=== PATIENT | female | born 2000 | race Asian ===

== ENCOUNTER 2023-04-25 11:03 | Emergency (ER) | payer BC ==
[~2023-04-25] VITALS: Ht 162.6 cm; Wt 46.3 kg
[2023-04-25 11:12] VITALS: BP 122/66; PULSE 87; RESP 16; TEMP 98.3; O2SAT 98
--- NOTE | 2023-04-25 11:19 | NUR ---
AMB. TO BED 4 WITH NO DISTRESS. NO ACUTE BLEEDING. NURSE MADE AWARE
[2023-04-25] MEDS ORDERED: LIDOCAINE MPF 1% 10 MG/ML VIAL INJ ONE (11:25)
--- NOTE | 2023-04-25 11:37 | NUR ---
PATIENT PRESENTS TO ED WITH LACERATION UNDER CHIN, RIGHT KNEE ABRIASION. PT STATES WAS ON HER SKATEBOARD AND FELL. DENIES N/V/D; SKIN IS PINK/WARM/DRY; AAOX4 WITH EVEN AND STEADY GAIT; LUNGS CLEAR BL; HR EVEN AND REGULAR; PT DENIES ANY FEVER, CP, SOB, OR COUGH AT THIS TIME; PATIENT STATES PAIN OF 0/10 AT THIS TIME; VSS; PATIENT POSITIONED FOR COMFORT; HOB ELEVATED; BEDRAILS UP X2; BED DOWN. ER MD MADE AWARE OF PT STATUS. SUTURE KIT. AVAILABLE AT BEDSIDE.
[2023-04-25 11:51] VITALS: O2SAT 98
[2023-04-25 11:56] VITALS: BP 122/66; PULSE 87; RESP 16; TEMP 98.3
--- NOTE | 2023-04-25 11:58 | NUR ---
AT BEDSIDE APPLYING SUTURES TO CHIN.
[2023-04-25 12:23] VITALS: O2SAT 98
--- NOTE | 2023-04-25 12:23 | NUR ---
Patient discharged with v/s stable. Written and verbal after care instructions given and explained. Patient verbalized understanding. Ambulatory with steady gait. All questions addressed prior to discharge. Advised to follow up with PMD.
== END 2023-04-25 12:23 | disposition home or self-care (01) ==
LOC: MED 11:03
DX: S01.81XA Laceration without foreign body of other part of head, initial encounter (principal); S80.211A Abrasion, right knee, initial encounter; F90.9 Attention-deficit hyperactivity disorder, unspecified type; V00.131A Fall from skateboard, initial encounter; Y93.51 Activity, roller skating (inline) and skateboarding; Y92.331 Roller skating rink as the place of occurrence of the external cause; Y99.8 Other external cause status
CPT/HCPCS: 12011; 99282; J2001

== ENCOUNTER 2023-04-27 11:46 | Emergency (ER) | payer BC ==
[~2023-04-27] VITALS: Ht 162.6 cm; Wt 59.0 kg
[2023-04-27 12:06] VITALS: BP 122/68; PULSE 89; RESP 18; TEMP 97; O2SAT 98
[2023-04-27 12:45] VITALS: BP 122/68; PULSE 89; RESP 18; TEMP 97; O2SAT 98
== END 2023-04-27 12:46 | disposition home or self-care (01) ==
LOC: MED 11:46
DX: S01.81XD Laceration without foreign body of other part of head, subsequent encounter (principal); Z48.00 Encounter for change or removal of nonsurgical wound dressing; X58.XXXD Exposure to other specified factors, subsequent encounter
CPT/HCPCS: 99282

== ENCOUNTER 2023-05-02 11:52 | Emergency (ER) | payer BC ==
[~2023-05-02] VITALS: Ht 154.9 cm; Wt 55.3 kg
[2023-05-02 11:58] VITALS: BP 118/70; PULSE 77; RESP 17; TEMP 97.6; O2SAT 98
== END 2023-05-02 12:14 | disposition home or self-care (01) ==
LOC: MED 11:52
DX: S01.81XD Laceration without foreign body of other part of head, subsequent encounter (principal); Z48.02 Encounter for removal of sutures; X58.XXXD Exposure to other specified factors, subsequent encounter
CPT/HCPCS: 99281